=== PATIENT | female | born 2000 | race Caucasian/White ===

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

== ENCOUNTER 2019-03-11 15:42 | Emergency (ER) | payer OTHER ==
[~2019-03-11] VITALS: Ht 154.9 cm; Wt 108.9 kg
[~2019-03-11 15:42] MED LIST changes: +HYDR-3164 PO; -HYDR-971 PO; -OXYC-323 PO; +OXYC1TAB15 PO
[2019-03-11 15:52] VITALS: BP 140/92
--- NOTE | 2019-03-11 16:08 | PHYS DOC ---
Past Medical History Past Medical History: Depression, Endometriosis Past Surgical History: Other Additional Past Surgical Histo: exploratory lap for endometriosis Alcohol Use: None Drug Use: None Adult General Chief Complaint Chief Complaint: EYE PROBLEMS HPI HPI Patient is a 19 year old male presents to the ED complaining of left eye redness times one day ago. States she woke up with green discharge. States that it itches. Denies vision changes, diplopia, contacts/eye glass wearing, headache, fever, nausea/vomiting or neck pain. Review of Systems Review of Systems Constitutional: Denies fever or chills [] Eyes: Complains of redness and green discharge. Denies change in visual acuity, or eye pain [] HENT: Denies nasal congestion or sore throat [] Respiratory: Denies cough or shortness of breath [] Cardiovascular: No additional information not addressed in HPI [] GI: Denies abdominal pain, nausea, vomiting, bloody stools or diarrhea [] : Denies dysuria or hematuria [] Musculoskeletal: Denies back pain or joint pain [] Integument: Denies rash or skin lesions [] Neurologic: Denies headache, focal weakness or sensory changes [] All other systems were reviewed and found to be within normal limits, except as documented in this note. Allergies Allergies Allergies Coded Allergies Type Severity Reaction Last Updated Verified No Known Drug Allergies 01/03/18 No Physical Exam Physical Exam Constitutional: Well developed, well nourished, no acute distress, non-toxic appearance. [] HENT: Normocephalic, atraumatic, bilateral external ears normal, oropharynx moist, no oral exudates, nose normal. [] Eyes: PERRLA, EOMI, mild conjunctival injection with green discharge to left eye. [] Cardiovascular:Heart rate regular rhythm, no murmur [] Lungs & Thorax: Bilateral breath sounds clear to auscultation [] Skin: Warm, dry, no erythema, no rash. [] Neurologic: Alert and oriented X 3, normal motor function, normal sensory function, no focal deficits noted. [] Psychologic: Affect normal, judgement normal, mood normal. [] Current Patient Data Vital Signs Vital Signs Date Time Temp Pulse Resp B/P (MAP) Pulse Ox O2 Delivery O2 Flow Rate FiO2 03/11/19 15:52 98.6 94 16 140/92 (108) 99 Room Air 98.6 EKG EKG [] Radiology/Procedures Radiology/Procedures [] Course & Med Decision Making Course & Med Decision Making Pertinent Labs and Imaging studies reviewed. (See chart for details) [] Dragon Disclaimer Dragon Disclaimer This electronic medical record was generated, in whole or in part, using a voice recognition dictation system. Departure Departure Impression: Primary Impression: Conjunctivitis Disposition: HOME, SELF-CARE Condition: IMPROVED Referrals: AME HAGEN (PCP) Patient Instructions: Bacterial Conjunctivitis Scripts Sulfacetamide Sodium (BLEPH-10) 5 Ml Drops 2 DROP OS TID for 7 Days, #5 ML Prov: LUIS FELIPE NETTLES 03/11/19 LUIS FELIPE NETTLES Mar 11, 2019 16:08
[2019-03-11] MEDS ORDERED: SULF5DRO OS (16:12)
== END 2019-03-11 16:24 | disposition home or self-care (01) ==
LOC: ER 15:42
DX: H10.9 Unspecified conjunctivitis (principal); F32.9 Major depressive disorder, single episode, unspecified
CPT/HCPCS: 99283

== ENCOUNTER 2019-03-29 12:46 | Emergency (ER) | payer OTHER ==
[~2019-03-29] VITALS: Ht 154.9 cm; Wt 108.9 kg
[~2019-03-29 12:46] MED LIST changes: +SULF5DRO OS
[2019-03-29 13:07] VITALS: BP 145/96
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
[2019-03-29] MEDS ORDERED: KETOROLAC 60 MG/2 ML VIAL. IM ONE (13:30)
[2019-03-29] MEDS ORDERED: LIDOCAINE 2% 20 ML VIAL. IJ ONE (13:30)
--- NOTE | 2019-03-29 14:34 | RAD ---
Examination: KNEE RIGHT 4V History: Right knee pain, fell Comparison/Correlation: None Findings: Total of 5 images of the right knee were obtained including oblique views. Joint spaces are normal. No acute fracture or bony destruction. No fracture or bony destruction. Slightly high density of involving the soft tissue at the medial subcutaneous region of the is identified to measure up to 1.6 cm diameter and is of indeterminate intravenous. No degenerative change. No findings to suggest joint effusion. Impression: No fracture or bony destruction. Electronically signed by: Ronnell Thomas MD (03/29/2019 2:32 PM) [facility]
[2019-03-29] MEDS ORDERED: HYDROcodone/APAP 5/325MG 1 TAB TABLET PO ONE (15:30)
[2019-03-29] MEDS ORDERED: NEOMY/BACITR/POLYMYXIN OINT PACKET. TP ONE (16:00)
[2019-03-29] MEDS ORDERED: CEPH-264 PO (16:00)
== END 2019-03-29 16:15 | disposition home or self-care (01) ==
LOC: ER 12:49
DX: S81.011A Laceration without foreign body, right knee, initial encounter (principal); W18.39XA Other fall on same level, initial encounter; Y93.89 Activity, other specified; Y92.89 Other specified places as the place of occurrence of the external cause; Y99.8 Other external cause status
CPT/HCPCS: 12001; 73564; 81025; 96372; 99284; J1885; J2001

== ENCOUNTER 2019-04-03 06:15 | Emergency (ER) | payer OTHER ==
[~2019-04-03] VITALS: Ht 154.9 cm; Wt 107.0 kg
[~2019-04-03 06:15] MED LIST changes: +CEPH-264 PO
[2019-04-03 06:19] VITALS: BP 162/96
[2019-04-03] MEDS ORDERED: CEPH-264 PO (06:47)
[2019-04-03] MEDS ORDERED: NEOM10DR32 RIGHT EAR (06:47)
--- NOTE | 2019-04-03 06:47 | PHYS DOC ---
Past Medical History Past Medical History: Depression, Endometriosis, Hypertension Additional Past Medical Histor: PCOS Past Surgical History: Other Additional Past Surgical Histo: exploratory lap for endometriosis Alcohol Use: None Drug Use: None Adult General Chief Complaint Chief Complaint: EARACHE/EAR PAIN HPI HPI 19-year-old female presents with report of right earache which is been ongoing for the past several days. Patient also reports subjective fever/chills. Denies . Patient also requests evaluation of right anterior knee wound at site of laceration repair. Patient reports she was previously prescribed antibiotics but due to financial constraints was unable to fill them. For some mild erythema around the suture site but denies discharge from that area. Review of Systems Review of Systems Constitutional: Reports subjective fever/chills Eyes: Denies redness or eye pain HENT: Denies nasal congestion ; reports right earache Respiratory: Denies cough or shortness of breath Cardiovascular: Denies chest pain or palpitations GI: Denies abdominal pain, nausea, or vomiting : Denies dysuria or hematuria Musculoskeletal: Denies back pain or joint pain Integument: Denies rash; reports right anterior knee erythema around recently sutured site with some eschar Neurologic: Denies headache, focal weakness or sensory changes Complete systems were reviewed and found to be within normal limits, except as documented in this note. Current Medications Current Medications Current Medications Medications (Trade) Dose Ordered Sig/[facility] Start Time Stop Time Status Last Admin Dose Admin Cephalexin HCl (Keflex) 500 mg 1X ONCE 04/03/19 07:00 04/03/19 07:01 Ibuprofen (Motrin) 600 mg 1X ONCE 04/03/19 07:00 04/03/19 07:01 Neomycin/ Polymyxin/ Hydrocortisone (Cortisporin Otic) 1 drop 1X ONCE 04/03/19 07:00 04/03/19 07:01 Allergies Allergies Allergies Coded Allergies Type Severity Reaction Last Updated Verified No Known Drug Allergies 01/03/18 No Physical Exam Physical Exam Constitutional: Well developed, well nourished, no acute distress, non-toxic appearance HENT: Normocephalic, atraumatic, oropharynx moist, right external ear canal swollen with purulent discharge noted, some mild erythema noted posteriorly to right ear, unable to see TM, no mastoid process tenderness Eyes: Conjunctiva normal, no discharge Neck: Normal range of motion, no tenderness, supple Cardiovascular: Heart rate normal, regular rhythm Lungs & Thorax: Bilateral breath sounds clear to auscultation, no wheezing Skin: Warm, dry, sutured wound to right anterior knee with some mild surrounding erythema without exudate, some eschar noted around wound due to prior abrasion Extremities: No tenderness, ROM intact, no edema Neurologic: Alert and oriented X 3, no focal deficits noted Psychologic: Affect normal, judgement normal Current Patient Data Vital Signs Vital Signs Date Time Temp Pulse Resp B/P (MAP) Pulse Ox O2 Delivery O2 Flow Rate FiO2 04/03/19 06:19 100.3 124 18 162/96 (118) 98 Room Air 100.3 EKG EKG [] Radiology/Procedures Radiology/Procedures Ear wick placement to right external ear canal performed by myself after verbal consent. Placed with some discomfort. Corticosporin otic suspension placed x 4 drops. Patient tolerated procedure. Course & Med Decision Making Course & Med Decision Making Patient presents with history of present illness and physical exam consistent for right-sided otitis externa. No mastoid process tenderness noted. Patient was noted to be febrile. Fever addressed. Wick placed to ear canal with empiric Corticosporin otic. Patient also given oral Keflex to treat for infection as well as possible surrounding erythema from right knee sutured wound. Patient stable for discharge with outpatient follow-up with PCP. Discussed findings and plan with patient, who acknowledges understanding and agreement. Dragon Disclaimer Dragon Disclaimer This electronic medical record was generated, in whole or in part, using a voice recognition dictation system. Departure Departure Impression: Primary Impression: External otitis of right ear Additional Impressions: Encounter for wound re-check Fever Disposition: 01 HOME, SELF-CARE Condition: STABLE Referrals: AME HAGEN (PCP) Patient Instructions: Fever, Adult, [id number], Otitis Externa, [id number], Wound Check Additional Instructions: Your wound appears to have some mild infectious process. You have been prescribed antibiotics to cover for both your ear and your knee. Please take till complete. Scripts Neomycin/Polymyxin B Sulf/Hc ([id number] EAR SUSP) 10 Ml Drops.susp 4 DROP RIGHT EAR TID for 7 Days, #10 ML Prov: KAY SORENSEN DO 04/03/19 Cephalexin (KEFLEX) 500 Mg Capsule 500 MG PO QID for 7 Days, #28 CAP Prov: KAY SORENSEN DO 04/03/19 Problem Qualifiers Primary Impression: External otitis of right ear Otitis externa type: unspecified type Chronicity: acute Qualified Codes: H60.501 - Unspecified acute noninfective otitis externa, right ear Additional Impressions: Fever Fever type: unspecified Qualified Codes: R50.9 - Fever, unspecified KAY SORENSEN DO Apr 03, 2019 06:47
[2019-04-03] MEDS ORDERED: CEPHALEXIN 250 MG CAPSULE. PO ONE (07:00)
[2019-04-03] MEDS ORDERED: NEOMYCIN/POLYMYXIN/HC OTIC SUSPENSION 10ML BOTTLE. AD ONE (07:00)
[2019-04-03] MEDS ORDERED: IBUPROFEN 200 MG TABLET. PO ONE (07:00)
== END 2019-04-03 07:02 | disposition home or self-care (01) ==
LOC: ER 06:15
DX: H60.501 Unspecified acute noninfective otitis externa, right ear (principal); R50.9 Fever, unspecified; I10 Essential (primary) hypertension
CPT/HCPCS: 99283

== ENCOUNTER 2019-04-04 23:05 | Emergency (ER) | payer OTHER ==
[~2019-04-04] VITALS: Ht 154.9 cm; Wt 107.0 kg
[~2019-04-04 23:05] MED LIST changes: +NEOM10DR32 RIGHT EAR
[2019-04-05 00:10] VITALS: BP 155/87
[2019-04-05] MEDS ORDERED: HYDR-3164 PO (01:15)
[2019-04-05] MEDS ORDERED: IBUP200T44 PO (01:16)
--- NOTE | 2019-04-05 01:17 | PHYS DOC ---
Past Medical History Past Medical History: Anxiety, Bipolar, Depression, GERD, UTI Additional Past Medical Histor: ABNORMAL MENSTRUAL BLEEDING Past Surgical History: No Surgical History Additional Past Surgical Histo: exploratory lap for endometriosis Alcohol Use: Rarely Drug Use: None Adult General Chief Complaint Chief Complaint: EARACHE/EAR PAIN HPI HPI Patient is a 19 year old [f__sex] who presents with [] Review of Systems Review of Systems Constitutional: Denies fever or chills [] Eyes: Denies change in visual acuity, redness, or eye pain [] HENT: Denies nasal congestion or sore throat [] Respiratory: Denies cough or shortness of breath [] Cardiovascular: No additional information not addressed in HPI [] GI: Denies abdominal pain, nausea, vomiting, bloody stools or diarrhea [] : Denies dysuria or hematuria [] Musculoskeletal: Denies back pain or joint pain [] Integument: Denies rash or skin lesions [] Neurologic: Denies headache, focal weakness or sensory changes [] Endocrine: Denies polyuria or polydipsia [] All other systems were reviewed and found to be within normal limits, except as documented in this note. Current Medications Current Medications Current Medications Medications (Trade) Dose Ordered Sig/Rina Start Time Stop Time Status Last Admin Dose Admin Acetaminophen/ Hydrocodone Bitart (Lortab 5/325) 1 tab 1X ONCE 04/05/19 01:15 04/05/19 01:16 UNV Ketorolac Tromethamine (Toradol 30mg Vial) 30 mg 1X ONCE 04/05/19 01:15 04/05/19 01:16 UNV Neomycin/ Polymyxin/ Hydrocortisone (Cortisporin Otic) 1 drop 1X ONCE 04/05/19 01:15 04/05/19 01:16 UNV Allergies Allergies Allergies Coded Allergies Type Severity Reaction Last Updated Verified No Known Drug Allergies 01/03/18 No Physical Exam Physical Exam Constitutional: Well developed, well nourished, no acute distress, non-toxic appearance. [] HENT: Normocephalic, atraumatic, bilateral external ears normal, oropharynx moist, no oral exudates, nose normal. [] Eyes: PERRLA, EOMI, conjunctiva normal, no discharge. [] Neck: Normal range of motion, no tenderness, supple, no stridor. [] Cardiovascular:Heart rate regular rhythm, no murmur [] Lungs & Thorax: Bilateral breath sounds clear to auscultation [] Abdomen: Bowel sounds normal, soft, no tenderness, no masses, no pulsatile masses. [] Skin: Warm, dry, no erythema, no rash. [] Back: No tenderness, no CVA tenderness. [] Extremities: No tenderness, no cyanosis, no clubbing, ROM intact, no edema. [] Neurologic: Alert and oriented X 3, normal motor function, normal sensory function, no focal deficits noted. [] Psychologic: Affect normal, judgement normal, mood normal. [] Current Patient Data Vital Signs Vital Signs Date Time Temp Pulse Resp B/P (MAP) Pulse Ox O2 Delivery O2 Flow Rate FiO2 04/05/19 00:10 98.4 106 18 155/87 (109) 99 Room Air 98.4 EKG EKG [] Radiology/Procedures Radiology/Procedures [] Course & Med Decision Making Course & Med Decision Making Pertinent Labs and Imaging studies reviewed. (See chart for details) [] Dragon Disclaimer Dragon Disclaimer This electronic medical record was generated, in whole or in part, using a voice recognition dictation system. Departure Departure Impression: Primary Impression: Otitis externa Disposition: HOME, SELF-CARE Condition: STABLE Referrals: AME HAGEN (PCP) Patient Instructions: Otitis Externa, [id number] Scripts Ibuprofen (MOTRIN IB) 200 Mg Tablet 3 TAB PO TID PRN for PAIN, #90 TAB Prov: KAY SORENSEN DO 04/05/19 Hydrocodone/Apap 5-325 (NORCO 5-325 TABLET) 1 Each Tablet 0.5-1 TAB PO PRN Q6HRS PRN for PAIN, #10 TAB 0 Refills Prov: KAY SORENSEN DO 04/05/19 Problem Qualifiers Primary Impression: Otitis externa Otitis externa type: unspecified type Chronicity: acute Laterality: left Qualified Codes: H60.502 - Unspecified acute noninfective otitis externa, left ear KAY SORENSEN DO Apr 05, 2019 01:17
[2019-04-05] MEDS ORDERED: HYDROcodone/APAP 5/325MG 1 TAB TABLET PO ONE (01:30)
[2019-04-05] MEDS ORDERED: KETOROLAC 30 MG/ML VIAL. IM ONE (01:30)
[2019-04-05] MEDS ORDERED: NEOMYCIN/POLYMYXIN/HC OTIC SUSPENSION 10ML BOTTLE. AS ONE (01:30)
== END 2019-04-05 01:37 | disposition home or self-care (01) ==
LOC: ER 23:05
DX: H60.502 Unspecified acute noninfective otitis externa, left ear (principal); F41.9 Anxiety disorder, unspecified; F31.9 Bipolar disorder, unspecified; K21.9 Gastro-esophageal reflux disease without esophagitis
CPT/HCPCS: 96372; 99283; J1885

== ENCOUNTER 2019-06-09 19:25 | Emergency (ER) | payer OTHER ==
[~2019-06-09] VITALS: Ht 154.9 cm; Wt 113.4 kg
[~2019-06-09 19:25] MED LIST changes: +IBUP200T44 PO
[2019-06-09] MEDS ORDERED: ALBUTEROL SULFATE 2.5 MG/3 ML NEBU. ONE (19:32)
[2019-06-09] MEDS ORDERED: IPRATROPIUM BROMIDE 0.5 MG/2.5 ML NEBU. ONE (19:32)
[2019-06-09 19:40] VITALS: BP 150/100
[2019-06-09] MEDS ORDERED: ONDANSETRON ODT 4 MG TAB.RAPDIS. PO ONE (20:30)
[2019-06-09] MEDS ORDERED: ACETAMINOPHEN 500 MG TABLET PO ONE (20:30)
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
[2019-06-09] MEDS ORDERED: ONDA4TAB11 PO (21:36)
== END 2019-06-09 22:45 | disposition home or self-care (01) ==
LOC: ER 19:25
DX: S09.90XA Unspecified injury of head, initial encounter (principal); R11.2 Nausea with vomiting, unspecified; F41.9 Anxiety disorder, unspecified; F31.9 Bipolar disorder, unspecified; N80.9 Endometriosis, unspecified; K21.9 Gastro-esophageal reflux disease without esophagitis; E28.2 Polycystic ovarian syndrome; F12.90 Cannabis use, unspecified, uncomplicated; Z72.89 Other problems related to lifestyle; Y08.89XA Assault by other specified means, initial encounter; Y93.89 Activity, other specified; Y92.89 Other specified places as the place of occurrence of the external cause; Y99.8 Other external cause status
CPT/HCPCS: 70450; 81025; 99284; Q0162

== ENCOUNTER 2019-06-18 17:32 | Emergency (ER) | payer OTHER ==
[~2019-06-18] VITALS: Ht 154.9 cm; Wt 113.4 kg
[~2019-06-18 17:32] MED LIST changes: +ONDA4TAB11 PO
[2019-06-18] MEDS ORDERED: NEOMY/BACITR/POLYMYXIN OINT PACKET. TP ONE ×2 (19:30→23:00)
[2019-06-18 19:51] LABS: BARBITURATES NEG (NEG); BENZODIAZEPINES NEG (NEG); CANNABINOIDS POS (NEG); COCAINE NEG (NEG); METHADONE NEG (NEG); OPIATES NEG (NEG); PHENCYCLIDINE NEG (NEG)
[2019-06-18 19:52] LABS: AMPHETAMINE/METHAMPHETAMINE NEG (NEG)
[2019-06-18 20:16] VITALS: BP 133/77
[2019-06-18 20:35] LABS: BASO # 0.1 x10^3/uL (0.0-0.2); BASO % 1 % (0-3); EOS # 0.2 x10^3/uL (0.0-0.7); EOS % 3 % (0-3); HEMATOCRIT 36.2 % (36.0-47.0); HEMOGLOBIN 12.3 g/dL (12.0-15.5); LYMPH # 3.1 x10^3/uL (1.0-4.8); LYMPH % 39 % (24-48); MEAN CORPUSCULAR HEMOGLOBIN 30 pg (25-35); MEAN CORPUSCULAR HGB CONC 34 g/dL (31-37); MEAN CORPUSCULAR VOLUME 87 fL (79-100); MONO # 0.6 x10^3/uL (0.0-1.1); MONO % 7 % (0-9); NEUT % 50 % (31-73); PLATELET COUNT 235 x10^3/uL (140-400); RED BLOOD COUNT 4.17 x10^6/uL (3.50-5.40); RED CELL DISTRIBUTION WIDTH 13.3 % (11.5-14.5)
[2019-06-18 20:50] LABS: CREATININE 1.2 mg/dL (0.6-1.0); GFR 57.3; POTASSIUM 3.9 mmol/L (3.5-5.1)
[2019-06-18 20:53] LABS: ACETAMIN < 2 mcg/ml (10-30); ETHANOL < 10 mg/dL (0-10); SALIC < 2.8 mg/dL (2.8-20.0)
[2019-06-18 21:04] LABS: ALBUMIN 3.2 g/dL (3.4-5.0); TOTAL BILIRUBIN 0.2 mg/dL (0.2-1.0); TOTAL PROTEIN 6.3 g/dL (6.4-8.2)
[2019-06-18] MEDS ORDERED: MUPI22OI2 TP (22:57)
[2019-06-18] MEDS ORDERED: CEPH500C PO (22:57)
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
[2019-06-20 17:09] LABS: GC PROBE Negative (Negative)
== END 2019-06-18 22:58 | disposition home or self-care (01) ==
LOC: ER 17:32
DX: S71.111A Laceration without foreign body, right thigh, initial encounter (principal); R45.851 Suicidal ideations; N89.8 Other specified noninflammatory disorders of vagina; F41.8 Other specified anxiety disorders; F31.9 Bipolar disorder, unspecified; N80.9 Endometriosis, unspecified; F12.90 Cannabis use, unspecified, uncomplicated; X78.1XXA Intentional self-harm by knife, initial encounter; Y93.89 Activity, other specified; Y92.89 Other specified places as the place of occurrence of the external cause; Y99.8 Other external cause status
CPT/HCPCS: 36415; 80053; 80307; 80329; 81025; 85025; 87491; 87591; 99284; G0480; Q0111

== ENCOUNTER 2020-03-15 11:31 | Emergency (ER) | payer BC, MEDICAID ==
[~2020-03-15] VITALS: Ht 154.9 cm; Wt 111.0 kg
[~2020-03-15 11:31] MED LIST changes: +CEPH500C PO; +MUPI22OI2 TP; +ONDA-84 PO; -ONDA4TAB11 PO
[2020-03-15 11:35] VITALS: BP 144/81
[2020-03-15] MEDS ORDERED: DIPH,PERTUSS(ACELL),TET VAC/PF 0.5 ML SYRINGE. VAX IM ONE (12:15)
[2020-03-15] MEDS ORDERED: LIDOCAINE 1% PF 2 ML VIAL. INJ ONE (12:15)
--- NOTE | 2020-03-15 12:44 | PHYS DOC ---
Past Medical History Past Medical History: Anxiety, Bipolar, Depression, Endometriosis, GERD, Hypertension, UTI Additional Past Medical Histor: ABNORMAL MENSTRUAL BLEEDING, Boardline personality disorder, PCOS Past Surgical History: No Surgical History, Other Additional Past Surgical Histo: exploratory lap for endometriosis Smoking Status: Former Smoker Alcohol Use: None Drug Use: Marijuana General Adult EDM: Chief Complaint: FOOT INJURY PAIN HPI: HPI: Patient is a 20 year old female, accompanied by her significant other, who presents to the emergency department with complaints of fishhook stuck in the bottom of her right foot. Patient states she did not see the fishhook on her floor when she stepped on it. She is unsure when her last tetanus shot was. She denies any numbness, tingling, weakness, or decreased sensation of the affected foot. She currently denies any pain at rest. Patient states that she tried to pull it hooked out of her foot on her own but was unsuccessful. Review of Systems: Review of Systems: Constitutional: Denies fever or chills. [] Musculoskeletal: Denies joint pain. [] Integument: See HPI Neurologic: Denies headache, focal weakness or sensory changes. [] Psychiatric: Denies depression or anxiety. [] Heart Score: Risk Factors: Risk Factors: DM, Current or recent (<one month) smoker, HTN, HLP, family history of CAD, obesity. Risk Scores: Score 0 - 3: 2.5% MACE over next 6 weeks - Discharge Home Score 4 - 6: 20.3% MACE over next 6 weeks - Admit for Clinical Observation Score 7 - 10: 72.7% MACE over next 6 weeks - Early Invasive Strategies Current Medications: Current Medications Medications (Trade) Dose Ordered Sig/Rina Start Time Stop Time Status Last Admin Dose Admin Diphtheria/ Tetanus/Acell Pertussis (ADACEL TDap SYRINGE) 0.5 ml ONCE ONCE 03/15/20 12:15 03/15/20 12:16 DC 03/15/20 12:12 0.5 ML Lidocaine HCl (Xylocaine-Mpf 1% 2ml Vial) 4 ml 1X ONCE 03/15/20 12:15 03/15/20 12:16 DC 03/15/20 12:11 4 ML Allergies: Allergies: Allergies Coded Allergies Type Severity Reaction Last Updated Verified No Known Drug Allergies 01/03/18 No Physical Exam: PE: Constitutional: Well developed, well nourished, no acute distress, non-toxic appearance. [] HENT: Normocephalic, atraumatic, bilateral external ears normal, nose normal. [] Eyes: PERRLA, EOMI, conjunctiva normal, no discharge. [] Neck: Normal range of motion, no stridor. [] Cardiovascular:Heart rate regular rhythm Lungs & Thorax: Respirations even and unlabored, no retractions, no respiratory distress Skin: Warm, dry, no erythema, no rash; fishhook embedded in the plantar surface of the right foot, no active bleeding, no surrounding erythema or edema. [] Extremities: Right foot: No bony tenderness, no deformity, no cyanosis, ROM intact, no edema. [] Neurologic: Alert and oriented X 3, no focal deficits noted. [] Psychologic: Affect normal, judgement normal, mood normal. [] Current Patient Data: Vital Signs: Vital Signs Date Time Temp Pulse Resp B/P (MAP) Pulse Ox O2 Delivery O2 Flow Rate FiO2 03/15/20 11:35 98.5 93 15 144/81 (102) 99 Room Air 98.5 EKG: EKG: [] Radiology/Procedures: Radiology/Procedures: 1% lidocaine was injected into the right foot and to the area of the foreign body. The fishhook was grasped with a pair of needle-nose pliers, I was able to remove the fishhook with minimal effort. The wound site was then cleansed with chlorhexidine and normal saline by myself. No blood loss, no complications. [] Course & Med Decision Making: Course & Med Decision Making Pertinent Labs and Imaging studies reviewed. (See chart for details) [] Dragon Disclaimer: Dragon Disclaimer: This electronic medical record was generated, in whole or in part, using a voice recognition dictation system. Departure Departure Impression: Primary Impression: Fishing hook foreign body Qualified Codes: W45.8XXA - Other foreign body or object entering through skin, initial encounter Additional Impression: Need for Tdap vaccination Disposition: 01 HOME, SELF-CARE Condition: STABLE Referrals: AME HAGEN (PCP) Patient Instructions: Fish Hook Removal, VIS, Tetanus, Diphtheria (Td); Tetanus, Diphtheria, Pertussis (Tdap) - [facility] Additional Instructions: Keep the area clean and dry. You may take Tylenol as needed for pain. Apply antibiotic ointment and a clean bandage twice daily to the affected area.. Follow-up with your primary care doctor, as needed, return to the ER if you develop signs of infection including: redness, warmth, drainage, or a fever. Justicifation of Admission Dx: Justifications for Admission: Justification of Admission Dx: N/A SANDY GANDHI APRN Mar 15, 2020 12:44
== END 2020-03-15 12:58 | disposition home or self-care (01) ==
LOC: ER 11:31
DX: S90.851A Superficial foreign body, right foot, initial encounter (principal); F41.9 Anxiety disorder, unspecified; F32.9 Major depressive disorder, single episode, unspecified; K21.9 Gastro-esophageal reflux disease without esophagitis; I10 Essential (primary) hypertension; F12.90 Cannabis use, unspecified, uncomplicated; Z98.890 Other specified postprocedural states; Z87.891 Personal history of nicotine dependence; W45.8XXA Other foreign body or object entering through skin, initial encounter; Y93.89 Activity, other specified; Y92.89 Other specified places as the place of occurrence of the external cause; Y99.8 Other external cause status
CPT/HCPCS: 90471; 90715; 96372; 99284; J3490

== ENCOUNTER 2020-10-05 13:39 | Emergency (ER) | payer BC, MEDICAID ==
[~2020-10-05] VITALS: Ht 154.9 cm; Wt 122.7 kg
[2020-10-05 14:12] VITALS: BP 137/91
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
[2020-10-05] MEDS ORDERED: CEPHALEXIN 250 MG CAPSULE. PO STA (17:55)
[2020-10-05] MEDS ORDERED: NEOMYCIN/POLYMYXIN/HC OTIC SUSPENSION 10ML BOTTLE. AU ONE (18:00)
[2020-10-05] MEDS ORDERED: HYDROcodone/APAP 5/325MG 1 TAB TABLET PO ONE (18:00)
[2020-10-05] MEDS ORDERED: IBUPROFEN 200 MG TABLET. PO ONE (18:00)
[2020-10-05] MEDS ORDERED: NEOM10DR32 EACH EAR (18:10)
[2020-10-05] MEDS ORDERED: IBUP-1007 PO (18:10)
[2020-10-05] MEDS ORDERED: CEPH500T PO (18:10)
[2020-10-05] MEDS ORDERED: HYDR-2761 PO (18:10)
== END 2020-10-05 18:32 | disposition home or self-care (01) ==
LOC: ER 13:39
DX: H60.393 Other infective otitis externa, bilateral (principal); F31.9 Bipolar disorder, unspecified; K21.9 Gastro-esophageal reflux disease without esophagitis; I10 Essential (primary) hypertension; Z87.891 Personal history of nicotine dependence
CPT/HCPCS: 99284

== ENCOUNTER 2021-02-07 14:35 | Emergency (ER) | payer OTHER, BC, MEDICAID ==
[~2021-02-07] VITALS: Ht 154.9 cm; Wt 126.8 kg
[~2021-02-07 14:35] MED LIST changes: +CEPH500T PO; +HYDR-2761 PO; +NEOM10DR32 EACH EAR
[2021-02-07 15:35] VITALS: BP 163/99
[2021-02-07 15:48] LABS: BILIRUBIN,URINE NEGATIVE (NEG); CLARITY,URINE CLEAR; COLOR,URINE YELLOW; NITRITE,URINE NEGATIVE (NEG); PROTEIN,URINE NEGATIVE (NEG-TRACE); UROBILINOGEN,URINE 0.2 mg/dL (0.2 mg/dL)
[2021-02-07 15:58] LABS: BACTERIA,URINE FEW /HPF (0-FEW); RBC,URINE 0 /HPF (0-2); WBC,URINE RARE /HPF (0-4)
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
[2021-02-07] MEDS ORDERED: IBUPROFEN 400 MG TABLET. PO ONE (17:45)
[2021-02-07] MEDS ORDERED: ACETAMINOPHEN 500 MG TABLET PO ONE (17:45)
[2021-02-07] MEDS ORDERED: IBUP-1060 PO (17:53)
== END 2021-02-07 18:06 | disposition home or self-care (01) ==
LOC: ER 14:35
DX: M25.562 Pain in left knee (principal); G89.11 Acute pain due to trauma; R07.89 Other chest pain; M54.2 Cervicalgia; M54.5 Low back pain; F31.9 Bipolar disorder, unspecified; K21.9 Gastro-esophageal reflux disease without esophagitis; I10 Essential (primary) hypertension; Z87.891 Personal history of nicotine dependence; V43.52XA Car driver injured in collision with other type car in traffic accident, initial encounter; Y93.89 Activity, other specified; Y92.488 Other paved roadways as the place of occurrence of the external cause; Y99.8 Other external cause status
CPT/HCPCS: 71045; 72040; 72100; 73562; 81001; 81025; 99284